=== PATIENT | male | born 1995 | race Caucasian/White ===

== ENCOUNTER → 2019-07-26 | Outpatient (CLI) | payer OTHER ==
[2019-07-26 08:43] LABS: SPERM MORPHOLOGY SENT TO REFERENC LAB
[2019-07-26 08:46] LABS: SPERM CONCENTRATION 26.4 X10^6/mL (>12.0); SPERM PROGRESSION 3; TOTAL SPERM COUNT 105.6 X10^6 (>33.0)
== END ==
LOC: OD 07:25
PROVIDERS: ATTEND Nurse Practitioner Primary Care
DX: I86.1 Scrotal varices (principal); N46.9 Male infertility, unspecified
CPT/HCPCS: 36415; 89320